=== PATIENT | male | born 1990 | race Caucasian/White ===

== ENCOUNTER 2017-08-02 00:17 | Emergency (ER) | payer OTHER, SELFPAY ==
[2017-08-02] MEDS ORDERED: NA CHLORIDE 0.9% 1,000 ML ONE (01:05)
[2017-08-02 01:31] LABS: Protime INR 0.96
[2017-08-02 01:42] LABS: BUN Blood Urea Nitrogen 15 mg/dL (6-20); Bicarbonate 28 mEq/L (21-31); Glucose Level 114 mg/dL (65-120); Potassium 3.8 mEq/L (3.6-5.0); Sodium Level 139 mEq/L (135-145)
[2017-08-02 01:51] LABS: Hematocrit 45.4 % (39.6-49.0); RBC Red Blood Cell Count 5.37 M/uL (4.33-5.43)
[2017-08-02 01:52] LABS: Absolute Lymphocytes (CBC) 2.7 K/uL (0.7-4.9); Absolute Monocytes 0.7 K/uL (0.1-1.3); Absolute Neutrophil 6.3 K/uL (1.8-8.0); Basophils % 0.8 % (0-1.3); Eosinophils % 2.1 % (0-4.4); MCH 28.1 pg (27.0-35.0); MCV 84.7 fL (80-100); MPV 9.5 fL (7.6-11.3); Monocytes % 7.3 % (3.3-12.3)
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
== END 2017-08-02 03:42 | disposition home or self-care (01) ==
LOC: ER 00:17
DX: S06.0X0A Concussion without loss of consciousness, initial encounter (principal); S00.90XA Unspecified superficial injury of unspecified part of head, initial encounter; Y04.8XXA Assault by other bodily force, initial encounter; Y93.9 Activity, unspecified; Y92.009 Unspecified place in unspecified non-institutional (private) residence as the place of occurrence of the external cause; I10 Essential (primary) hypertension; Z88.0 Allergy status to penicillin; Z72.0 Tobacco use
CPT/HCPCS: 36415; 70450; 70486; 76377; 80048; 85025; 85610; 85730; 99284; J7030

== ENCOUNTER 2021-07-21 08:43 | Emergency (ER) | payer OTHER, SELFPAY ==
--- OUTSIDE RECORDS SUMMARY | 2021-07-21 08:46 | XMS REPORT | Continuity of Care Document ---
:1990 Author Organization [facility] t Address [address] [place] [address] [address] [place] [address] Care Team Providers Name Role Phone Julián Manzo MD Attending Clinician Amrita WILKES Attending Clinician Unavailable Problems Condition Condition Condition Status Onset Resolution Last Treating Co mments Source Name Details Category Date Date Treatment Clinician Date Bipolar 1 Bipolar 1 Disease Active Uni vers disorder, disorder, 4-05 ity of depressed depressed 00:00: [address] Allergies, Adverse Reactions, Alerts Allergy Allergy Status Severity Reaction(s) Onset Inactive Treating Comm ents Source Name Type Date Date Clinician NO KNOWN Drug Active Univers ALLERGIE Class ity of S [facility] Social History Social Habit Start Date Stop Date Quantity Comments Source History of tobacco Cigarette Smoker [place] of use [facility] Sex Assigned At Universit y of [facility] Cigarettes smoked 2019-01-20 2019-01-20 Univers ity of current (pack per 00:00:00 00:00:00 ) - Reported Branch Alcohol intake 2019-01-20 2019-01-20 [facility] 00:00:00 00:00:00 [facility] Alcohol Comment 2015-06-04 2015-06-04 [facility] Universit y of 00:00:00 00:00:00 [facility] Smoking Status Start Date Stop Date Source Current every day smoker 2019-01-20 00:00:00 Uni versity of [facility] Medications Ordered Filled Start Stop Current Ordering Indication Dosage Frequency Signature Comments Components Source Medication Medication Date Date Medication? Clinician (SIG) Name Name ALPRAZolam Yes [id number] .5mg Take 1 U nivers 0.5 mg 3-25 tablet by ity of tablet 00:00: mouth 2 [place] 00 (two) [facility] times [place] daily. QUEtiapine Yes [id number] 25mg Take 1 U nivers 25 mg 3-25 tablet by ity of tablet 00:00: mouth 2 [place] 00 (two) [facility] times [facility] daily. azithromyci 2018-03 Yes [id number] 500mg Take 1 Univers n 500 mg 2-02 tablet by ity of tablet 00:00: mouth [place] 00 daily. [facility] Branch acyclovir 2018-03 Yes [id number] 200mg Take 1 Un suzanne 200 mg 2-02 capsule by ity of capsule 00:00: mouth 4 00 (four) Medical times [facility] daily. azithromyci 2018-03 Yes [id number] 500mg Take 1 Univers n 500 mg 1-22 tablet by ity of tablet 00:00: mouth 00 daily. [facility] ALPRAZolam 2018-03 2020- No [id number] .5mg Take 1 Univers 0.5 mg 0-24 03-25 tablet by ity of tablet 00:00: 00:00 mouth 2 [place] 00 :00 (two) [facility] [place] daily. QUEtiapine 2018-03 2020- No [id number] 25mg Take 1 Univers 25 mg 0-24 03-25 tablet by ity of tablet 00:00: 00:00 mouth 2 [place] 00 :00 (two) [facility] [place] daily. Procedures This patient has no known procedures. Encounters Start End Encounter Admission Attending Care Care Encounter Source Date/Time Date/Time Type Type Clinicians Facility Department ID 2019-11-07 2019-11-07 Outpatient [facility] [id number] Univers 13:40:00 13:40:00 [id number] ity of [facility] 2019-11-07 2019-11-07 Outpatient [facility] [id number] Univers 13:40:00 13:40:00 ity [facility] 2019-05-23 2019-05-23 Refill Jovany [facility] [id number] Univers 00:00:00 00:00:[address] [facility] [id number] it y of Julián Desai [id number] [place]al[place] [id number] [place] [address] [address] Results Test Description Test Time Test Comments Results Result Comments Source Chemistry 2017-07-28 01:31:00 Test Item Value Reference Range Interpretation Comme nts Chemistry (test code = 0.8 ng/mL 0-6.6 N CKMBM-T) Chemistry (test code = Less than 0.010 < 0.028 * TROPI-T) ng/mL Reference Range 0.00 - 0. 028 ng/mL Negative 0.029 - 0.29 ng/mL Indeterminate Greater or Equ al to 0.3 ng/mL Strong ly suggests [place] [id number] 01:30:00 Test Item Value Reference Range Interpretation Comments Chemistry (test code 141 mmol/L 136-145 N = NA-T) Chemistry (test code 3.5 mmol/L 3.5-5.1 N = K-T) Chemistry (test code 109 mmol/L 98-107 H = CL) Chemistry (test code 21 mmol/L 22-29 L = CO2) Chemistry (test code 15 mmol/L 10-20 N = ANGP) Chemistry (test code 17 mg/dL 8.9-20.6 N = BUN) Chemistry (test code 1.06 mg/dL 0.7-1.3 N = CREATT) Chemistry (test code 84 Referen ce Range for = EGFRMDRD) Estimated GFR: Great er than 90 mL/min/1.73 m2NOTE:The MDRD equation has no t been validated for u se with theelderly (ove r 70 years of age), women, patientswith se rious comorbid condit ion or persons with ex tremes ofbody size, mu scle mass, or nutrit ional status. Chemistry (test code 107 mg/dL 70-105 H = GLU-T) Chemistry (test code 9.5 mg/dL 7.8-10.44 N = CA) Chemistry (test code 0.3 mg/dL 0.2-1.2 N = TBILI) Chemistry (test code 6.9 g/dL 6.0-8.3 N = TP) Chemistry (test code 4.3 g/dL 3.5-5.0 N = ALB) Chemistry (test code 2.6 g/dL 2.4-3.5 N = GLOB) Chemistry (test code 1.7 g/dL 1.2-2.2 N = AG) Chemistry (test code 48 U/L 40-150 N = ALP) Chemistry (test code 19 U/L 5-34 N = AST) Chemistry (test code 34 U/L 8-55 N = ALT) [id number] 01:30:00 Test Item Value Reference Range Interpretation Comments Chemistry (test code = LIP) 20 U/L 8-78 N [id number] 01:17:00 Test Item Value Reference Range Interpretation Comments Hematology (test code = WBCT) 11.7 thou/uL 4.8-10.8 H Hematology (test code = RBCT) 5.51 mill/uL 4.70-6.10 N Hematology (test code = HGBT) 16.2 g/dL 14.0-18.0 N Hematology (test code = HCTT) 44.8 % 42.0-52.0 N Hematology (test code = MCV) 81.4 fl 80.0-94.0 N Hematology (test code = MCH) 29.4 pg 27.0-31.0 N Hematology (test code = MCHC) 36.1 g/dL 32.0-36.0 H Hematology (test code = RDW) 11.9 % 11.5-14.5 N Hematology (test code = PLTT) 239 thou/uL 130-400 N Hematology (test code = MPV) 7.4 fL 7.4-10.4 N Hematology (test code = %NEUT) 62.9 % 42.0-75.0 N Hematology (test code = %LYMPH) 27.8 % 21.0-51.0 N Hematology (test code = %MONO) 6.5 % 0.0-10.0 N Hematology (test code = %EOS) 1.6 % 0.0-10.0 N Hematology (test code = %BASO) 1.2 % 0.0-1.0 H Hematology (test code = NEUT#) 7.4 thou/uL 1.40-6.50 H Hematology (test code = LYMPH#) 3.3 thou/uL 1.20-3.40 N Hematology (test code = MONO#) 0.8 thou/uL 0.11-0.59 H Hematology (test code = EOS#) 0.2 thou/uL 0.0-0.7 N Hematology (test code = BASO#) 0.1 thou/uL 0.0-0.2 N
[2021-07-21] MEDS ORDERED: IBUPROFEN 400 MG TAB ONE (09:09)
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
--- NOTE | 2021-07-21 11:01 | EDPHYS ---
Physician Documentation [facility] Name: Nito Caba Age: 31 yrs Sex: Male : 1990 Arrival Date: 07/21/2021 Time: 08:47 Bed 13 Private MD: ED Physician Rey Clayton HPI: 07/21 08:54 This 31 yrs old Male presents to ER via Ambulatory with complaints of Toe Injury, Foot m Pain. 08:54 The patient presents with an injury, pain. Onset: The symptoms/episode began/occurred jm acutely, just prior to arrival. Modifying factors: The symptoms are alleviated by nothing, the symptoms are aggravated by nothing. Associated signs and symptoms: Pertinent positives: swelling. 08:54 Is a 31-year-old male with history of hypertension the presents emerged part with [facility] complaints of right foot pain. This occurred after a barbecue pit fell on his right foot. This occurred this past Wednesday. Patient states he had pain and swelling since. Patient has some concerns he may have broken his foot. Denies other injury. Historical: - Allergies: 08:51 PENICILLINS; jd3 - Home Meds: 08:51 None [Active]; jd3 - PMHx: 08:51 Hypertension; jd3 - PSHx: 08:51 dental; jd3 - Immunization history:: Adult Immunizations up to date, Client reports having NOT received the Covid vaccine. Flu vaccine is up to date. - Social history:: Smoking status: Patient reports the use of cigarette tobacco products, smokes one-half pack cigarettes per day. ROS: 08:54 Constitutional: Negative for fever, chills, and weight loss, Cardiovascular: Negative jmm for chest pain, palpitations, and edema, Respiratory: Negative for shortness of breath, cough, wheezing, and pleuritic chest pain. 08:54 MS/extremity: Positive for pain. 08:54 All other systems are negative. Exam: 08:54 Constitutional: This is a well developed, well nourished patient who is awake, alert, jmm and in no acute distress. Head/Face: atraumatic. Eyes: EOMI, no conjunctival erythema appreciated ENT: Moist Mucus Membranes Neck: Trachea midline, Supple Chest/axilla: Normal chest wall appearance and motion. Cardiovascular: Regular rate and rhythm. No edema appreciated Respiratory: Normal respirations, no respiratory distress appreciated Abdomen/GI: Non distended, soft Back: Normal ROM Skin: General appearance color normal 08:54 Musculoskeletal/extremity: The dorsal surface of the right foot is tender to palpation, there is mild swelling appreciated, full dorsalis pedis pulse, compartments are soft, neurovascular intact. 08:54 Skin: Appearance: Color: normal in color. 08:54 Neuro: Orientation: is normal, Mentation: is normal, Memory: is normal. 08:54 Psych: Behavior/mood is pleasant, cooperative. Vital Signs: 08:51 BP 177 / 99; Pulse 84; Resp 17 S; Temp 97.0(TE); Pulse Ox 99% on R/A; Weight 117.93 kg jd3 (R); Height 5 ft. 11 in. (180.34 cm) (R); Pain 6/10; 08:51 Body Mass Index 36.26 (117.93 kg, 180.34 cm) jd3 MDM: 08:54 Patient medically screened. [facility] 11:00 Data reviewed: vital signs, nurses notes. Counseling: I had a detailed discussion with virgie the patient and/or guardian regarding: the historical points, exam findings, and any diagnostic results supporting the discharge/admit diagnosis, radiology results, the need for outpatient follow up, to return to the emergency department if symptoms worsen or persist or if there are any questions or concerns that arise at home. 07/21 08:54 Order name: Foot Right 3 View XRAY; Complete Time: 10:59 [facility] Administered Medications: 09:05 Drug: Ibuprofen 800 mg Route: PO; ap3 Disposition: 18:19 Co-signature as Attending Physician, Rey CABEZAS was immediately available on-site ms3 in the Emergency Department for consultation in the care of the patient.. Disposition Summary: 07/21/21 11:00 Discharge Ordered Location: Home [facility] Condition: Stable [facility] Diagnosis - Contusion of the Right Foot [facility] Followup: [facility] - With: Private Physician - When: 2 - 3 days - Reason: Recheck today's complaints, Continuance of care, Re-evaluation by your physician Discharge Instructions: - Discharge Summary Sheet [facility] - Foot Contusion [facility] Forms: - Medication Reconciliation Form [facility] - Thank You Letter alanis - Antibiotic Education [facility] - Prescription Opioid Use [facility] - Work release form iw Prescriptions: - Diclofenac Sodium 75 mg Oral Tablet Sustained Release - take 1 tablet by ORAL route 2 times per day; 30 tablet; Refills: 0, Product virgie Selection Permitted Signatures: Dispatcher [employer] Camilo Ferro PA PA jmm Davies, Jonathon RN RN jd3 Gin Milan RN RN ap3 Rey Clayton DO DO ms3
--- NOTE | 2021-07-21 11:01 | ER ---
Nurse's Notes [facility] Name: Nito Caba Age: 31 yrs Sex: Male : 1990 Arrival Date: 07/21/2021 Time: 08:47 Bed 13 Private MD: Diagnosis: Contusion of the Right Foot Presentation: 07/21 08:49 Chief complaint: Patient states: "I dropped a BBQ pit on my right foot. it feels jd3 bruised, but my job wants me to make sure it is ok. I am just wanting to make sure it isn't break.". Coronavirus screen: At this time, the client does not indicate any symptoms associated with coronavirus-19. Ebola Screen: No symptoms or risks identified at this time. Initial Sepsis Screen: Does the patient meet any 2 criteria? No. Patient's initial sepsis screen is negative. Does the patient have a suspected source of infection? No. Patient's initial sepsis screen is negative. Risk Assessment: Do you want to hurt yourself or someone else? Patient reports no desire to harm self or others. Onset of symptoms was July 18, 2021. 08:49 Method Of Arrival: Ambulatory jd3 08:49 Acuity: ANGELIA 4 jd3 Historical: - Allergies: 08:51 PENICILLINS; jd3 - Home Meds: 08:51 None [Active]; jd3 - PMHx: 08:51 Hypertension; jd3 - PSHx: 08:51 dental; jd3 - Immunization history:: Adult Immunizations up to date, Client reports having NOT received the Covid vaccine. Flu vaccine is up to date. - Social history:: Smoking status: Patient reports the use of cigarette tobacco products, smokes one-half pack cigarettes per day. Screenin:54 Abuse screen: Denies threats or abuse. Nutritional screening: No deficits noted. ap3 Tuberculosis screening: No symptoms or risk factors identified. 08:59 Fall Risk None identified. ap3 Assessment: 08:58 General: Appears in no apparent distress. Behavior is calm, cooperative. Pain: ap3 Complains of pain in right foot. Neuro: Level of Consciousness is awake, alert, obeys commands, Oriented to person, place, time, situation, Gait is steady, Speech is normal. Cardiovascular: Patient's skin is warm and dry. Respiratory: Airway is patent Respiratory effort is even, unlabored, Respiratory pattern is regular, symmetrical. Musculoskeletal: Reports pain in right foot since 07/18/21. 11:07 Reassessment: Patient is alert, oriented x 3, equal unlabored respirations, skin jh6 warm/dry/pink. no change in status. pt able to walk without issue or limp. Vital Signs: 08:51 BP 177 / 99; Pulse 84; Resp 17 S; Temp 97.0(TE); Pulse Ox 99% on R/A; Weight 117.93 kg jd3 (R); Height 5 ft. 11 in. (180.34 cm) (R); Pain 610; 08:51 Body Mass Index 36.26 (117.93 kg, 180.34 cm) jd3 ED Course: 08:47 Patient arrived in ED. am2 08:48 Camilo Braden PA is PHCP. alanis 08:48 Rey Clayton DO is Attending Physician. [facility] 08:50 Triage completed. jd3 08:53 Arm band placed on. jd3 08:54 Gin Milan, RN is Primary Nurse. ap3 08:54 Patient has correct armband on for positive identification. Call light in reach. Side ap3 rails up X 1. Pulse ox on. NIBP on. Door closed. Noise minimized. 10:49 Foot Right 3 View XRAY In Process Unspecified. EDMS 11:07 No provider procedures requiring assistance completed. jh6 Administered Medications: 09:05 Drug: Ibuprofen 800 mg Route: PO; ap3 Medication: 08:59 VIS not applicable for this client. ap3 Outcome: 11:00 Discharge ordered by MD. garvin 11:08 Discharged to home ambulatory. jh6 11:08 Condition: good 11:08 Discharge instructions given to patient, Instructed on discharge instructions, Demonstrated understanding of instructions. 11:13 Patient left the ED. 6 Signatures: Dispatcher [employer] EDMS Camilo Braden PA PA jmm Moreno, Amanda am2 Td Navarrete RN RN j Gin Milan RN RN ap3 Marylin Augustin RN RN 6
[2021-07-21 11:17] VITALS: BP 177/99; TEMP 97; O2SAT 99
== END 2021-07-21 11:13 | disposition home or self-care (01) ==
LOC: ER 08:43
DX: S90.31XA Contusion of right foot, initial encounter (principal); W22.8XXA Striking against or struck by other objects, initial encounter; I10 Essential (primary) hypertension; F17.210 Nicotine dependence, cigarettes, uncomplicated; Z88.0 Allergy status to penicillin
CPT/HCPCS: 99283

== ENCOUNTER 2021-07-22 16:30 | Emergency (ER) | payer OTHER ==
--- OUTSIDE RECORDS SUMMARY | 2021-07-22 16:32 | XMS REPORT | Continuity of Care Document ---
:1990 Author Organization [facility] t Address [address] [place] [address] [address]. [address] [place] [address] Care Team Providers Name Role Phone Julián Manzo MD Attending Clinician Amrita WILKES Attending Clinician Unavailable Problems Condition Condition Condition Status Onset Resolution Last Treating Co mments Source Name Details Category Date Date Treatment Clinician Date Bipolar 1 Bipolar 1 Disease Active Uni vers disorder, disorder, -05 [place] depressed [place] [address] Allergies, Adverse Reactions, Alerts Allergy Allergy Status Severity Reaction(s) Onset Inactive Treating Comm ents Source Name Type Date Date Clinician NO KNOWN Drug Active Univers ALLERGIE Class ity of S [facility] Social History Social Habit Start Date Stop Date Quantity Comments Source History of tobacco Cigarette Smoker [facility] use [facility] Cigarettes smoked 2019-01-20 2019-01-20 Univers ity of current (pack per 00:00:00 00:00:00 ) - Reported Branch Alcohol intake 2019-01-20 2019-01-20 University 00:00:00 00:00:00 [facility] Alcohol Comment 2015-06-04 2015-06-04 [facility] Universit y of 00:00:00 00:00:00 [facility] Smoking Status Start Date Stop Date Source Current every day smoker 2019-01-20 00:00:00 Uni versity of [facility] Medications Ordered Filled Start Stop Current Ordering Indication Dosage Frequency Signature Comments Components Source Medication Medication Date Date Medication? Clinician (SIG) Name Name ALPRAZolam 2020-0 Yes [id number] .5mg Take 1 U nivers 0.5 mg 3-25 tablet by ity of tablet 00:00: mouth [address] [place] [id number] (two) Medical times Branch daily. QUEtiapine Yes [id number] 25mg Take 1 U nivers 25 mg 3-25 tablet by ity of tablet 00:00: mouth 2 [place] 00 (two) Medical times Branch daily. azithromyci 2018-03 Yes [id number] 500mg Take 1 Univers n 500 mg 2-02 tablet by ity of tablet 00:00: mouth [place] 00 daily. Medical Branch acyclovir 2018-03 Yes [id number] 200mg Take 1 Un suzanne 200 mg 2-02 capsule by ity of capsule 00:00: mouth 4 [place] 00 (four) Medical times Branch daily. azithromyci 2018-03 Yes [id number] 500mg Take 1 Univers n 500 mg 1-22 tablet by ity of tablet 00:00: mouth [place] 00 daily. [facility] ALPRAZolam 2018-03 2020- No [id number] .5mg Take 1 Univers 0.5 mg 0-24 03-25 tablet by ity of tablet 00:00: 00:00 mouth 2 [place] 00 :00 (two) Medical times [place] daily. QUEtiapine 2018-03 2020- No [id number] 25mg Take 1 Univers 25 mg 0-24 03-25 tablet by ity of tablet 00:00: 00:00 mouth 2 [place] 00 :00 (two) Medical times [place] daily. Procedures This patient has no known procedures. Encounters Start End Encounter Admission Attending Care Care Encounter Source Date/Time Date/Time Type Type Clinicians Facility Department ID 2019-11-07 2019-11-07 Outpatient R [facility] [id number] Univers 13:40:00 13:40:00 [id number] ity [facility] 2019-11-07 2019-11-07 Outpatient R [facility] [id number] Univers 13:40:00 13:40:00 ity [facility] 2019-05-23 2019-05-23 [facility] [id number] Univers 00:00:00 00:00:00 [facility] [id number] it y of Julián Desai [id number] [place] as Reynaldo [id number] Wi dical [facility] [address] One Results Test Description [...] al to 0.3 ng/mL Strong ly suggests [place] [id number] 01:30:00 Test Item Value Reference Range Interpretation [...] code 34 U/L 8-55 N = ALT) [id number] 01:30:00 Test Item Value Reference Range Interpretation Comments Chemistry (test code = LIP) 20 U/L 8-78 N [id number] 01:17:00 Test Item Value Reference Range Interpretation [...]
[2021-07-22] MEDS ORDERED: ONDANSETRON 4 MG/2 ML VIAL ONE (17:04)
[2021-07-22] MEDS ORDERED: ACETAMINOPHEN 500 MG TAB ONE (17:04)
[2021-07-22] MEDS ORDERED: NA CHLORIDE 0.9% 1,000 ML ONE (17:05)
[2021-07-22] MEDS ORDERED: FAMOTIDINE 20 MG/2 ML VIAL IV ONE (17:06)
[2021-07-22 17:17] LABS: Urine Blood 2+ (Negative); Urine Glucose Negative (Negative); Urine Protein Trace (Negative); Urine Specific Gravity 1.025 (1.005-1.030)
[2021-07-22 17:21] LABS: Absolute Lymphocytes (CBC) 0.6 K/uL (0.7-4.9); Hematocrit 43.7 % (39.6-49.0); MPV 8.6 fL (7.6-11.3); RBC Red Blood Cell Count 5.13 M/uL (4.33-5.43)
[2021-07-22 17:41] LABS: Albumin 3.8 g/dL (3.4-5.0); Bilirubin Total 0.4 mg/dL (0.2-1.0); Potassium 3.6 mmol/L (3.5-5.1); Protein, Total 7.2 g/dL (6.4-8.2)
[2021-07-22 17:51] LABS: Urine Bacteria <20 /HPF (NONE SEEN)
--- NOTE | 2021-07-22 19:02 | ER ---
Nurse's Notes [facility] Name: Nito Caba Age: 31 yrs Sex: Male : 1990 Arrival Date: 07/22/2021 Time: 16:31 Bed 23 Private MD: Diagnosis: Other specified noninfective gastroenteritis and colitis Presentation: 07/22 16:53 Chief complaint: Patient states: Fever that began this morning. Pt reports vomiting and aa5 diarrhea that began during the night. Pt denies abd pain. Pt c/o body aches. Denies cough. 16:53 Coronavirus screen: fever. Ebola Screen: Patient denies travel to an Ebola-affected [facility] area in the 21 days before illness onset. Initial Sepsis Screen: Does the patient meet any 2 criteria? HR > 90 bpm. Does the patient have a suspected source of infection? No. Patient's initial sepsis screen is negative. Risk Assessment: Do you want to hurt yourself or someone else? Patient reports no desire to harm self or others. Onset of symptoms was June 2021. 16:53 Method Of Arrival: Ambulatory aa5 16:53 Acuity: ANGELIA 3 aa5 Triage Assessment: 18:31 General: Appears in no apparent distress. Behavior is calm, cooperative. wells Historical: - Allergies: 16:53 PENICILLINS; aa5 - PMHx: 16:53 Hypertension; aa5 - PSHx: 16:53 dental; aa5 - Immunization history:: Adult Immunizations unknown. - Social history:: Smoking status: Patient reports the use of cigarette tobacco products, smokes one-half pack cigarettes per day. Screenin:31 Abuse screen: Denies threats or abuse. Denies injuries from another. Nutritional wells screening: No deficits noted. Tuberculosis screening: No symptoms or risk factors identified. Fall Risk None identified. Assessment: 18:28 Pain: Complains of pain in generlized pain. GI: Bowel sounds present X 4 quads. Reports wells nausea, Pain is 6 out of 10 on a pain scale. vomiting. Vital Signs: 16:53 BP 160 / 84; Pulse 105; Resp 18 S; Temp 102.5(O); Pulse Ox 100% on R/A; aa5 18:32 BP 129 / 66; Pulse 83; Resp 18; Temp 99.5(O); wells ED Course: 16:31 Patient arrived in ED. rg4 16:35 Marylin Orantes FNP is [facility]. jh7 16:35 Amos Liu MD is Attending Physician. jh7 16:54 Arm band placed on. aa5 16:57 Triage completed. aa5 17:07 Flu Sent. mb7 17:07 CBC with Diff Sent. mb7 17:07 CMP Sent. mb7 17:07 Lipase Sent. mb7 17:07 Urine Microscopic Only Sent. mb7 17:07 Inserted saline lock: 20 gauge in left upper arm, using aseptic technique. Blood mb7 collected. 17:21 Flu Sent. mb7 18:28 Fern Zapien, RN is Primary Nurse. wells 18:31 Patient has correct armband on for positive identification. Bed in low position. wells 18:31 No provider procedures requiring assistance completed. wells 19:27 IV discontinued, intact, bleeding controlled, No redness/swelling at site. Pressure ag7 dressing applied. Administered Medications: 17:08 Drug: NS 0.9% 1000 ml Route: IV; Rate: 1 bolus; Site: left antecubital; aa5 18:26 Follow up: IV Status: Completed infusion; IV Intake: 1000ml aa5 17:08 Drug: Pepcid (famotidine) 20 mg Route: IVP; Site: left antecubital; aa5 17:08 CANCELLED (Physician Discretion): Tylenol 650 mg PO once aa5 17:08 Drug: Tylenol 1000 mg Route: PO; aa5 18:32 Follow up: Response: No adverse reaction wells 17:09 Drug: Zofran (Ondansetron) 4 mg Route: IVP; Site: left antecubital; aa5 Medication: 18:31 VIS not applicable for this client. wells Intake: 18:26 IV: 1000ml; Total: 1000ml. aa5 Outcome: 19:01 Discharge ordered by . 7 19:27 Discharged to home ambulatory. ag7 19:27 Condition: stable 19:27 Discharge instructions given to patient, Instructed on discharge instructions, follow up and referral plans. Demonstrated understanding of instructions, follow-up care, medications, Prescriptions given X 2. 19:27 Patient left the ED. 7 Signatures: Renae Adhikari RN RN aa5 Olivia Hdez rg4 Judi Jose mbFern Murcia RN RN wells Aleah Kerns RN RN ag7 Marylin Oratnes, JAWBONE BREAKER JAWBONE BREAKER jh7 Corrections: (The following items were deleted from the chart) 18:36 18:32 Temp 99.5F Oral; wells priscilla
--- NOTE | 2021-07-22 19:02 | EDPHYS ---
Physician Documentation [facility] Name: Nito Caba Age: 31 yrs Sex: Male : 1990 Arrival Date: 07/22/2021 Time: 16:31 Bed 23 Private MD: ED Physician Amos Liu HPI: 07/22 17:00 This 31 yrs old Male presents to ER via Ambulatory with complaints of Fever. jh7 17:00 The patient reports fever, that was measured at 102 degrees Fahrenheit. Onset: The jh7 symptoms/episode began/occurred last night. Patient reports fever, 4-5 episodes of vomiting, body aches, and diarrhea since last night. He denies abdominal pain, cough, chest pain, and shortness of breath. declines covid testing at this time.. Historical: - Allergies: 16:53 PENICILLINS; aa5 - PMHx: 16:53 Hypertension; aa5 - PSHx: 16:53 dental; aa5 - Immunization history:: Adult Immunizations unknown. - Social history:: Smoking status: Patient reports the use of cigarette tobacco products, smokes one-half pack cigarettes per day. ROS: 17:00 ENT: Negative for injury, pain, and discharge, Neck: Negative for injury, pain, and jh7 swelling, Cardiovascular: Negative for chest pain, palpitations, and edema, Respiratory: Negative for shortness of breath, cough, wheezing, and pleuritic chest pain, Back: Negative for injury and pain, Skin: Negative for injury, rash, and discoloration, Neuro: Negative for headache, weakness, numbness, tingling, and seizure. 17:00 Constitutional: Positive for body aches, chills, fatigue, fever. 17:00 Abdomen/GI: Positive for nausea, vomiting, and diarrhea, Negative for abdominal pain, abdominal cramps, black/tarry stool, rectal pain. 17:00 All other systems are negative. Exam: 17:00 ENT: Nares patent. No nasal discharge, no septal abnormalities noted. Tympanic jh7 membranes are normal and external auditory canals are clear. Oropharynx with no redness, swelling, or masses, exudates, or evidence of obstruction, uvula midline. Mucous membranes moist. Cardiovascular: Regular rate and rhythm with a normal S1 and S2. No gallops, murmurs, or rubs. Normal PMI, no JVD. No pulse deficits. Respiratory: Lungs have equal breath sounds bilaterally, clear to auscultation and percussion. No rales, rhonchi or wheezes noted. No increased work of breathing, no retractions or nasal flaring. Back: No spinal tenderness. No costovertebral tenderness. Full range of motion. Skin: Warm, dry with normal turgor. Normal color with no rashes, no lesions, and no evidence of cellulitis. Neuro: Awake and alert, GCS 15, oriented to person, place, time, and situation. Normal gait. 17:00 Constitutional: The patient appears alert, awake, uncomfortable. 17:00 Abdomen/GI: Inspection: abdomen appears normal, Bowel sounds: normal, Palpation: abdomen is soft and non-tender, in all quadrants. 17:00 Back: pain, is absent, ROM is normal, CVA tenderness, is absent. jh7 17:00 : CVA tenderness, is absent. Vital Signs: 16:53 BP 160 / 84; Pulse 105; Resp 18 S; Temp 102.5(O); Pulse Ox 100% on R/A; aa5 18:32 BP 129 / 66; Pulse 83; Resp 18; Temp 99.5(O); wells MDM: 17:00 Differential diagnosis: viral Infection. Data reviewed: vital signs, nurses notes, lab jh7 test result(s). Data interpreted: Pulse oximetry: is 100 %. Interpretation: normal. Counseling: I had a detailed discussion with the patient and/or guardian regarding: the historical points, exam findings, and any diagnostic results supporting the discharge/admit diagnosis, to return to the emergency department if symptoms worsen or persist or if there are any questions or concerns that arise at home. Response to treatment: the patient's symptoms have markedly improved after treatment. ED course: The patient remained stable throughout the ER visit. His temperature decreased with the Tylenol, and he felt much better after the medications were administered. Discussed microscopic blood in the urine with patient. He has no CVA tenderness or abdominal pain. He has not noticed any blood in his urine. Advised him to follow-up with his PCP, take medication as prescribed, and increase p.o. fluid intake. Advised him that if he develops any new concerning symptoms, to return to the ER for further eval.. 18:23 Patient medically screened. [facility] 07/22 17:02 Order name: CBC with Diff; Complete Time: 18:22 [facility] 07/22 17:02 Order name: CMP; Complete Time: 18: [facility] 07/22 17:02 Order name: Lipase; Complete Time: 18:22 [facility] 07/22 17:02 Order name: Urine Microscopic Only; Complete Time: 18:22 [facility] 07/22 17:02 Order name: Flu; Complete Time: 18: [facility] 07/22 17:18 Order name: Urine Dipstick-Ancillary; Complete Time: 18:22 [facility] 07/22 17:02 Order name: IV Saline Lock; Complete Time: 17:07 [facility] 07/22 17:02 Order name: Labs collected and sent; Complete Time: 17:07 [facility] Administered Medications: 17:08 Drug: NS 0.9% 1000 ml Route: IV; Rate: 1 bolus; Site: left antecubital; aa5 18:26 Follow up: IV Status: Completed infusion; IV Intake: 1000ml aa5 17:08 Drug: Pepcid (famotidine) 20 mg Route: IVP; Site: left antecubital; aa5 17:08 CANCELLED (Physician Discretion): Tylenol 650 mg PO once aa5 17:08 Drug: Tylenol 1000 mg Route: PO; aa5 18:32 Follow up: Response: No adverse reaction wells 17:09 Drug: Zofran (Ondansetron) 4 mg Route: IVP; Site: left antecubital; aa5 Disposition: 07/23 08:41 Co-signature as Attending Physician, Amos Liu MD. rn Disposition Summary: 07/22/21 19:01 Discharge Ordered Location: Home [facility] Problem: new [facility] Symptoms: have improved [facility] Condition: Stable [facility] Diagnosis - Other specified noninfective gastroenteritis and colitis [facility] Followup: [facility] - With: Private Physician - When: 2 - 3 days - Reason: Recheck today's complaints Discharge Instructions: - Discharge Summary Sheet [facility] - Diarrhea, Adult [facility] - Viral Gastroenteritis, Adult [facility] Forms: - Work release form ag7 - Medication Reconciliation Form [facility] - Thank You Letter [facility] Prescriptions: - Zofran 4 mg Oral Tablet - take 1 tablet by ORAL route every 12 hours As needed; 20 tablet; Refills: 0, jh7 Product Selection Permitted - Levsin 0.125 mg Oral Tablet - take 1 tablet by ORAL route every 8 hours; 30 tablet; Refills: 0, Product [facility] Selection Permitted Signatures: Dispatcher [employer] EDAmos Gutierrez MD MD rn Calderon, Audri, RN RN aa5 Marylin Orantes FNP LEGAL EDITOR [facility] GenevieveStagerFern RN Corrections: (The following items were deleted from the chart) 07/22 17:08 17:02 Tylenol 650 mg PO once ordered. 7 aa5 18:28 17:00 Patient reports fever, 4-5 episodes of vomiting, body aches, and diarrhea since 7 last night. He denies abdominal pain, cough, chest pain, and shortness of breath.. [facility]
[2021-07-22 19:36] VITALS: O2SAT 100
[2021-07-22 19:37] VITALS: BP 129/66; TEMP 99.5
== END 2021-07-22 19:27 | disposition home or self-care (01) ==
LOC: ER 16:30
DX: K52.89 Other specified noninfective gastroenteritis and colitis (principal); I10 Essential (primary) hypertension; F17.210 Nicotine dependence, cigarettes, uncomplicated; Z88.0 Allergy status to penicillin
CPT/HCPCS: 96361; 85025; 36415; 83690; 80053; 87804 ×2; 96375; 96374; 99284; J7030; J2405; J3490; 81003; 81015

== ENCOUNTER 2021-10-10 10:31 | Emergency (ER) | payer OTHER ==
--- OUTSIDE RECORDS SUMMARY | 2021-10-10 10:34 | XMS REPORT | Continuity of Care Document ---
:1990 Author Organization [facility] t Address [address] [place] [address] [address] [place] [address] Care Team Providers Name Role Phone Aneudy Manzo MD Attending Clinician ALDEN WILKES Attending Clinician Unavailable Problems Condition Condition Condition Status Onset Resolution Last Treating Co mments Source Name Details Category Date Date Treatment Clinician Date Bipolar 1 Bipolar 1 Disease Active Uni vers disorder, disorder, 06-03 ity of depressed depressed 00:00: [address] Allergies, Adverse Reactions, Alerts Allergy Allergy Status Severity Reaction(s) Onset Inactive Treating Comm ents Source Name Type Date Date Clinician NO KNOWN Drug Active Univers ALLERGIE Class ity of [facility] Social History Social Habit Start Date Stop Date Quantity Comments Source History of tobacco Cigarette Smoker [facility] use [facility] Sex Assigned At [facility]it y of [facility] Cigarettes smoked 2019-01-20 2019-01-20 Univers ity of current (pack per 00:00:00 00:00:00 ) - Reported Branch Alcohol intake 2019-01-20 2019-01-20 University 00:00:00 00:00:00 [facility] Alcohol Comment 2015-06-04 2015-06-04 occ Universit y of 00:00:00 00:00:00 [facility] Smoking Status Start Date Stop Date Source Current every day smoker 2019-01-20 00:00:00 Uni versity of [facility] Medications Ordered Filled Start Stop Current Ordering Indication Dosage Frequency Signature Comments Components Source Medication Medication Date Date Medication? Clinician (SIG) Name Name ALPRAZolam 2020-0 Yes [id number] .5mg Take 1 U nivers 0.5 mg 3-25 tablet by ity of tablet 00:00: mouth [address] [place] [id number] (two) Medical times Branch daily. QUEtiapine Yes [id number] 25mg Take 1 U nivers 25 mg 3-25 tablet by ity of tablet 00:00: mouth 2 [place] 00 (two) Medical times Branch daily. azithromyci 2018-03 Yes [id number] 500mg Take 1 Univers n 500 mg 2-02 tablet by ity of tablet 00:00: mouth [place] 00 daily. Medical Branch acyclovir 2018-03 Yes [id number] 200mg Take 1 Un suzanne 200 mg 2-02 capsule by ity of capsule 00:00: mouth 4 [place] 00 (four) Medical times Branch daily. azithromyci 2018-03 Yes [id number] 500mg Take 1 Univers n 500 mg 1-22 tablet by ity of tablet 00:00: mouth [place] 00 daily. [facility] Branch ALPRAZolam 2018-03 2020- No [id number] .5mg Take 1 Univers 0.5 mg 0-24 03-25 tablet by ity of tablet 00:00: 00:00 mouth 2 [place] 00 :00 (two) Medical times Branch daily. QUEtiapine 2018-03 2020- No [id number] 25mg Take 1 Univers 25 mg 0-24 03-25 tablet by ity of tablet 00:00: 00:00 mouth 2 [place] 00 :00 (two) Medical times Branch daily. Procedures This patient has no known procedures. Encounters Start End Encounter Admission Attending Care Care Encounter Source Date/Time Date/Time Type Type Clinicians Facility Department ID 2019-11-07 2019-11-07 Outpatient R [facility] [id number] Univers 13:40:00 13:40:00 [id number] ity [facility] 2019-11-07 2019-11-07 Outpatient R [facility] [id number] Univers 13:40:00 13:40:00 ity [facility] 2019-05-23 2019-05-23 Charmaine Manzo [facility] [id number] Univers 00:00:00 00:00:00 [facility] [id number] it y of Julián Desai [id number] [place] [facility] [phone] Ga dical [facility] [address] Branch [address] One Results Test Description Test Time Test Comments Results Result Comments Source Chemistry 2017-07-28 01:31:00 Test Item Value Reference Range Interpretation Comme nts Chemistry (test code = 0.8 ng/mL 0-6.6 N CKMBM-T) Chemistry (test code = Less than 0.010 ng/mL < 0.028 TROPI-T) Reference Range 0.00 - 0.028 ng/mL N egative 0.029 - 0.29 ng/mL In determinate Greater or Equa l to 0.3 ng/mL Strongly sugges ts MD [id number] 01:30:00 Test Item Value Reference Range Interpretation [...] ce Range for = EGFRMDRD) Estimated GFR: Greater than 90 mL/min/ 1.73 m2NOTE:The MDRD equation has no t been validated for u se with theelderly (ove r 70 years of age), women, patients with serious comorbi d condition or pe rsons with extremes o fbody size, muscle ma ss, or nutritional sta tus. Chemistry (test code 107 mg/dL 70-105 H [...] code 34 U/L 8-55 N = ALT) [id number] 01:30:00 Test Item Value Reference Range Interpretation Comments Chemistry (test code = LIP) 20 U/L 8-78 N [id number] 01:17:00 Test Item Value Reference Range Interpretation [...]
[2021-10-10] MEDS ORDERED: NA CHLORIDE 0.9% 1,000 ML ONE (11:00)
[2021-10-10] MEDS ORDERED: DIPHENHYDRAMINE 50 MG/ML VIAL ONE (11:00)
[2021-10-10] MEDS ORDERED: METOCLOPRAMIDE 10 MG/2mL INJ ONE (11:00)
[2021-10-10] MEDS ORDERED: FAMOTIDINE 20 MG/2 ML VIAL IV ONE (11:01)
[2021-10-10 11:14] LABS: Absolute Lymphocytes (CBC) 1.6 K/uL (0.7-4.9); MCV 84.3 fL (80-100); MPV 8.4 fL (7.6-11.3)
[2021-10-10 11:32] LABS: Albumin 4.3 g/dL (3.4-5.0); Bilirubin Total 0.4 mg/dL (0.2-1.0); Potassium 3.9 mmol/L (3.5-5.1); Protein, Total 7.7 g/dL (6.4-8.2)
--- NOTE | 2021-10-10 11:44 | RAD REPORT ---
EXAM DESCRIPTION: US - Abdomen Exam Limited - 10/10/2021 11:28 am CLINICAL HISTORY: EPIGASTRIC PAIN COMPARISON: ABDOMINAL EXAM LIMITED dated 12/30/2012 FINDINGS: The gallbladder demonstrates no gallstones. No pericholecystic fluid or gallbladder wall t hickening. The common bile duct is normal measuring 3 mm. The liver demonstrates no findings of intrahepatic biliary dilatation. IMPRESSION: Unremarkable examination.
--- NOTE | 2021-10-10 12:18 | RAD REPORT ---
EXAM DESCRIPTION: CT - Abdomen Pelvis Wo Contrast - 10/10/2021 11:58 am CLINICAL HISTORY: Abdominal pain. abdominal pain, vomiting COMPARISON: No comparisons TECHNIQUE: CT imaging of the abdomen and pelvis was performed without contrast. Solid organ, bowel a nd vascular assessment is limited due to lack of IV and oral contrast. All CT scans are performed using dose optimization technique as appropriate and may include automated exposure control or mA/KV adjustment according to patient size. FINDINGS: The lower lung matson are clear. The liver, spleen, pancreas, adrenal glands and kidneys are within normal limits for a limited non-co ntrast examination. No bowel obstruction, free air, free fluid or abscess. The appendix is normal. The osseous structures are within normal limits. IMPRESSION: No acute intra-abdominal or pelvic findings. A limited non-contrast examination was performed as detailed.
--- NOTE | 2021-10-10 13:26 | ER ---
Nurse's Notes [facility] Name: Nito Caba Age: 31 yrs Sex: Male : 1990 Arrival Date: 10/10/2021 Time: 10:33 Bed 27 Private MD: Diagnosis: Vomiting Presentation: 10/10 10:40 Chief complaint: Patient states: Burning, cramping epigastric/upper abdominal pain x jl7 1.5 weeks, N/V with blood in vomit. Coronavirus screen: At this time, the client does not indicate any symptoms associated with coronavirus-19. Ebola Screen: No symptoms or risks identified at this time. Initial Sepsis Screen: Does the patient meet any 2 criteria? No. Patient's initial sepsis screen is negative. Does the patient have a suspected source of infection? No. Patient's initial sepsis screen is negative. Risk Assessment: Do you want to hurt yourself or someone else? Patient reports no desire to harm self or others. Onset of symptoms is unknown. 10:40 Method Of Arrival: Ambulatory jl7 10:40 Acuity: ANGELIA 3 jl7 Triage Assessment: 10:41 General: Appears in no apparent distress. uncomfortable, Behavior is calm, cooperative, jl7 appropriate for age. Pain: Complains of pain in epigastric area Pain currently is 7 out of 10 on a pain scale. GI: Reports upper abdominal pain. Historical: - Allergies: 10:41 PENICILLINS; jl7 - Home Meds: 10:41 None [Active]; jl7 - PMHx: 10:41 Hypertension; jl7 - PSHx: 10:41 dental; jl7 - Immunization history:: Client reports receiving the 2nd dose of the Covid vaccine. - Social history:: Smoking status: Patient reports the use of cigarette tobacco products, smokes one pack cigarettes per day. Screenin:45 Abuse screen: Denies threats or abuse. Denies injuries from another. Nutritional bp screening: No deficits noted. Tuberculosis screening: No symptoms or risk factors identified. Fall Risk None identified. Assessment: 10:45 General: SEE TRIAGE NOTE. bp 11:33 Reassessment: US COMPLETED, INITIAL RESULTS UNREMARKABLE. GI: Abdomen is non-distended. bp 12:06 Reassessment: PT RETURNED FROM CT. bp 13:43 Reassessment: PT D/C HOME AMBULATORY. bp Vital Signs: 10:40 BP 126 / 94; Pulse 95; Resp 17; Temp 98.2; Pulse Ox 99% ; Weight 115.67 kg; Height 6 jl7 ft. 0 in. (182.88 cm); Pain 7/10; 10:59 BP 124 / 79; Pulse 76; Resp 16; Pulse Ox 98% ; bp 11:33 BP 127 / 57; Pulse 74; Resp 16; Pulse Ox 97% ; bp 12:06 BP 136 / 65; Pulse 67; Resp 16; Pulse Ox 100% ; bp 13:43 BP 131 / 59; Pulse 71; Resp 16; Pulse Ox 99% ; bp 10:40 Body Mass Index 34.58 (115.67 kg, 182.88 cm) jl7 ED Course: 10:33 Patient arrived in ED. rg4 10:33 Camilo Braden PA is PHCP. jmm 10:33 Jayro Cardenas MD is Attending Physician. jmm 10:41 Triage completed. jl7 10:41 Arm band placed on right wrist. jl7 10:45 Patient has correct armband on for positive identification. Bed in low position. Call bp light in reach. Side rails up X2. 10:49 Randolph Neri, RN is Primary Nurse. bp 10:55 Inserted saline lock: 18 gauge in right antecubital area, using aseptic technique. bp Blood collected. 11:29 US Abdomen Limited In Process Unspecified. EDMS 12:00 Abdomen In Process Unspecified. EDMS 13:25 Srinivas Rankin MD is Referral Physician. jmm 13:44 No provider procedures requiring assistance completed. IV discontinued, intact, bp bleeding controlled, No redness/swelling at site. Pressure dressing applied. Administered Medications: 10:56 Drug: NS 0.9% 1000 ml Route: IV; Rate: 1 bolus; Site: right antecubital; bp 12:59 Follow up: IV Status: Completed infusion; IV Intake: 1000ml bp 10:56 Drug: Pepcid (famotidine) 20 mg Route: IVP; Site: right antecubital; bp 12:59 Follow up: Response: No adverse reaction bp 10:57 Drug: Reglan (metoCLOPramide) 10 mg Route: IVP; Site: right antecubital; bp 12:59 Follow up: Response: No adverse reaction bp 10:57 Drug: diphenhydrAMINE 12.5 mg Route: IVP; Site: right antecubital; bp 12:59 Follow up: Response: No adverse reaction bp Medication: 10:45 VIS not applicable for this client. bp Intake: 12:59 IV: 1000ml; Total: 1000ml. bp Outcome: 13:25 Discharge ordered by MD. garvin 13:44 Discharged to home ambulatory. bp 13:44 Condition: stable 13:44 Discharge instructions given to patient, Instructed on discharge instructions, follow up and referral plans. medication usage, Demonstrated understanding of instructions, follow-up care, medications, Prescriptions given X 3. 13:45 Patient left the ED. bp Signatures: Dispatcher [employer] EDMS Camilo Braden PA PA jmm Garcia, Rubi rg4 Robin Blue RN RN Randolph Hayward RN RN bp Corrections: (The following items were deleted from the chart) 10:41 10:41 Social history: Smoking status: Patient denies any tobacco usage or history of. [place] jl7
--- NOTE | 2021-10-10 13:26 | EDPHYS ---
Physician Documentation [facility] Name: Nito Caba Age: 31 yrs Sex: Male : 1990 Arrival Date: 10/10/2021 Time: 10:33 Bed 27 Private MD: ED Physician Jayro Cardenas HPI: 10/10 10:39 This 31 yrs old Male presents to ER via Ambulatory with complaints of Vomiting. jmm 10:39 The patient presents to the emergency department with nausea, vomiting, abdominal pain. jmm Onset: The symptoms/episode began/occurred acutely, 1.5 week(s) ago. Possible causes: flare up of bowel problem. This is a 31-year-old male with history of hypertension the presents emerged department with complaints of epigastric abdominal pain vomiting beginning approximately a week and a half ago. Patient attributes much of this to stress. Patient has had a previous episode secondary to stress in the past. States he was prescribed medication which help alleviate symptoms but unable to recall the name.. Historical: - Allergies: 10:41 PENICILLINS; jl7 - Home Meds: 10:41 None [Active]; jl7 - PMHx: 10:41 Hypertension; jl7 - PSHx: 10:41 dental; jl7 - Immunization history:: Client reports receiving the 2nd dose of the Covid vaccine. - Social history:: Smoking status: Patient reports the use of cigarette tobacco products, smokes one pack cigarettes per day. ROS: 10:39 Constitutional: Negative for fever, chills, and weight loss, Cardiovascular: Negative jmm for chest pain, palpitations, and edema, Respiratory: Negative for shortness of breath, cough, wheezing, and pleuritic chest pain. 10:39 Abdomen/GI: Positive for abdominal pain, vomiting. 10:39 All other systems are negative. Exam: 10:39 Constitutional: This is a well developed, well nourished patient who is awake, alert, jmm and in no acute distress. Head/Face: atraumatic. Eyes: EOMI, no conjunctival erythema appreciated ENT: Moist Mucus Membranes Neck: Trachea midline, Supple Chest/axilla: Normal chest wall appearance and motion. Cardiovascular: Regular rate and rhythm. No edema appreciated Respiratory: Normal respirations, no respiratory distress appreciated 10:39 Back: Normal ROM Skin: General appearance color normal MS/ Extremity: Moves all extremities, no obvious deformities appreciated, no edema noted to the lower extremities Neuro: Awake and alert Psych: Behavior is normal, Mood is normal, Patient is cooperative and pleasant 10:39 Abdomen/GI: Inspection: abdomen appears normal, Bowel sounds: normal, Palpation: soft, mild abdominal tenderness, in the epigastric area, right upper quadrant and left upper quadrant. Vital Signs: 10:40 BP 126 / 94; Pulse 95; Resp 17; Temp 98.2; Pulse Ox 99% ; Weight 115.67 kg; Height 6 jl7 ft. 0 in. (182.88 cm); Pain 7/10; 10:59 BP 124 / 79; Pulse 76; Resp 16; Pulse Ox 98% ; bp 11:33 BP 127 / 57; Pulse 74; Resp 16; Pulse Ox 97% ; bp 12:06 BP 136 / 65; Pulse 67; Resp 16; Pulse Ox 100% ; bp 13:43 BP 131 / 59; Pulse 71; Resp 16; Pulse Ox 99% ; bp 10:40 Body Mass Index 34.58 (115.67 kg, 182.88 cm) jl7 MDM: 10:39 Patient medically screened. [facility] 13:22 Data reviewed: vital signs, nurses notes. Counseling: I had a detailed discussion with virgie the patient and/or guardian regarding: the historical points, exam findings, and any diagnostic results supporting the discharge/admit diagnosis, the need for outpatient follow up, to return to the emergency department if symptoms worsen or persist or if there are any questions or concerns that arise at home. ED course: Patient states feeling much better. Patient is able to tolerate p.o. in the ED. Labs and imaging studies were unremarkable. Patient advised to follow-up with gastroenterology and otherwise given strict return precautions. Patient understood and agrees plan of care.. 10/10 10:47 Order name: CBC with Diff; Complete Time: 11:25 [facility] 10/10 10:47 Order name: CMP; Complete Time: 11:33 [facility] 10/10 10:47 Order name: Lipase; Complete Time: 11:33 [facility] 10/10 11:04 Order name: US Abdomen Limited; Complete Time: 11:46 [facility] 10/10 11:56 Order name: Abdomen ; Complete Time: 12:22 [facility] 10/10 10:47 Order name: IV Saline Lock; Complete Time: 10:49 [facility] 10/10 10:47 Order name: Labs collected and sent; Complete Time: 10:49 [facility] 10/10 12:34 Order name: PO challenge; Complete Time: 12:59 [facility] Administered Medications: 10:56 Drug: NS 0.9% 1000 ml Route: IV; Rate: 1 bolus; Site: right antecubital; bp 12:59 Follow up: IV Status: Completed infusion; IV Intake: 1000ml bp 10:56 Drug: Pepcid (famotidine) 20 mg Route: IVP; Site: right antecubital; bp 12:59 Follow up: Response: No adverse reaction bp 10:57 Drug: Reglan (metoCLOPramide) 10 mg Route: IVP; Site: right antecubital; bp 12:59 Follow up: Response: No adverse reaction bp 10:57 Drug: diphenhydrAMINE 12.5 mg Route: IVP; Site: right antecubital; bp 12:59 Follow up: Response: No adverse reaction bp Disposition: 14:13 Attestation: The patient's history, exam findings, diagnostics, and a summary of any [facility] interventions or procedures was reviewed in detail with Camilo SORIANO. Disposition Summary: 10/10/21 13:25 Discharge Ordered Location: Home [facility] Condition: Stable [facility] Diagnosis - Vomiting [facility] Followup: [facility] - With: Private Physician - When: As needed - Reason: Recheck today's complaints, Continuance of care, Re-evaluation by your physician Followup: [facility] - With: Srinivas Rankin MD - When: 2 - 3 days - Reason: Recheck today's complaints, Continuance of care, Re-evaluation by your physician Discharge Instructions: - Discharge Summary Sheet [facility] - Vomiting, Adult [facility] Forms: - Medication Reconciliation Form [facility] - Thank You Letter [facility] - Antibiotic Education [facility] - Prescription Opioid Use [facility] - Work release form eb Prescriptions: - Carafate 1 gram Oral Tablet - take 1 tablet by ORAL route 4 times per day take on an empty stomach, beginning [facility] on waking and last dose at bedtime; 100 tablet; Refills: 0, Product Selection Permitted - Pepcid 20 mg Oral Tablet - take 1 tablet by ORAL route every 12 hours for 10 days; 20 tablet; Refills: 0, [facility] Product Selection Permitted - ondansetron 4 mg Oral tablet,disintegrating - take 1 tablet by ORAL route every 4-6 hours As needed; 20 tablet; Refills: 0, jmm Product Selection Permitted Signatures: Dispatcher [employer] EDCamilo Cavazos PA PA jmm Leal, Jahala RN SAURAV jl7 Randolph Neri RN RN Jayro Cody MD MD [id number] Corrections: (The following items were deleted from the chart) 10:41 10:41 Social history: Smoking status: Patient denies any tobacco usage or history of. jlYohan jl7 11:56 11:06 Abdomen Pelvis W Con+CT.RAD.BRZ ordered. EDMS EDMS
[2021-10-10 13:51] VITALS: TEMP 98.2
[2021-10-10 14:01] VITALS: BP 131/59; O2SAT 99
== END 2021-10-10 13:45 | disposition home or self-care (01) ==
LOC: ER 10:31
DX: R11.10 Vomiting, unspecified (principal); I10 Essential (primary) hypertension; F17.210 Nicotine dependence, cigarettes, uncomplicated
CPT/HCPCS: 96361; 85025; 36415; 83690; 80053; 74176; 76705; 96375; 96374; 99284; J2765; J1200; J7030

== ENCOUNTER 2023-08-24 01:00 | Emergency (ER) | payer SELFPAY ==
--- OUTSIDE RECORDS SUMMARY | 2023-08-24 01:04 | XMS REPORT | Continuity of Care Document ---
Author Name Unknown Address [address] [place] [address] Organization [facility] thconnect Address [address] [place] [address] Care Team Providers Care Loop Puller Name Role Phone Zain Manzo MD Primary Care Physician Zain Manzo MD Attending Clinician + [phone] ZAIN MANZO Attending Clinician UnaSon Samson Attending Clinician Unavailable Son Dugan Attending Clinician +[phone] Doctor Unassigned, [place] Attending Clinician U ALDEN Rodriguez Attending Clinician Unavailable Payers Payer Name Policy Type Policy Number Effective Date Expirati on Date Source Problems Condition Name Condition Details Condition Category Status Onset Date Resolution Date Last Treatment Date Treating Clinician Comments Source Bipolar 1 disorder, depressed Bipolar 1 disorder, depressed Disease Active 06-03 00:00: 00 [facility] Allergies, Adverse Reactions, Alerts Allergy Name Allergy Type Status Severity Reaction(s) Onset Date Inactive Date Treating Clinician Comments Source PENICILL IN DRUG INGREDI Active Hives 07-01 00:00: 00 [facility] Penicill in Propensi ty to adverse reaction s Active [facility]07[facility] 00:00: 00 [facility] NO KNOWN ALLERGIE S Drug Class Active [facility] Social History Social Habit Start Date Stop Date Quantity Comments Source History SDOH Alcohol Frequency [facility] History SDOH Alcohol Std Drinks [facility] History SDOH Alcohol Binge [facility] History of tobacco use Cigarette Smoker [facility] Alcohol intake 2022-07-02 00:00:00 2022-07-02 00:00:00 3.43 /d [facility] Exposure to SARS-CoV-2 (event) 2022-06-21 00:00:00 2022-07-01 10:37:00 Not sure [facility] Tobacco use and exposure 2015-06-04 00:00:00 2015-06-04 00:00:00 Smokeless tobacco non-user [facility] Cigarettes smoked current (pack per day) - Reported 2015-06-04 00:00:00 2015-06-04 00:00:00 [facility] Alcohol Comment 2015-06-04 00:00:00 2015-06-04 00:00:00 occ [facility] Sex Assigned At 1990 00:00:00 1990 00:00:00 [facility] Smoking Status Start Date Stop Date Source Smokes tobacco daily 2015-06-04 00:00:00 [facility] Medications Ordered Medication Name Filled Medication Name Start Date Stop Date Current Medication? Ordering Clinician Indication Dosage Frequency Signature (SIG) Comments Components Source methocarbam oL (ROBAXIN) tablet 500 mg 07-01 16:45: 00 07-01 15:40 :00 No 500mg 500 mg, Oral, ONCE, 1 dose, On Wed07/01/22 at 1145, Routine [facility] ibuprofen (IBU) tablet 600 mg 07-01 15:45: 00 07-01 15:40 :00 No 600mg 600 mg, Oral, ONCE, 1 dose, On Wed07/01/22 at 1045, PATI [facility] methocarbam oL 500 mg tablet 07-01 00:00: 00 Yes [id number] 500mg Take 1 tablet by mouth 4 (four) times daily. [facility] ibuprofen 600 mg tablet 07-01 00:00: 00 Yes [id number] 600mg Take 1 tablet by mouth every 6 (six) hours as needed for Pain (scale 4-6). [facility] QUEtiapine (SEROQUEL) 25 mg tablet 2021-03 00:00: 00 Yes [id number] 25mg Take 1 tablet by mouth at bedtime. [facility] busPIRone 5 mg tablet 2021-03 00:00: 00 07-02 00:00 :00 No [id number] 5mg Take 1 tablet by mouth in the morning and 1 tablet in the evening. [facility] ALPRAZolam 0.5 mg tablet 05-23 00:00: 00 12-10 00:00 :00 No [id number] .5mg Take 1 tablet by mouth 2 (two) times daily. [facility] QUEtiapine 25 mg tablet 05-23 00:00: 00 12-10 00:00 :00 No [id number] 25mg Take 1 tablet by mouth 2 (two) times daily. [facility] azithromyci n 500 mg tablet 2018-03 00:00: 00 12-10 00:00 :00 No [id number] 500mg Take 1 tablet by mouth daily. [facility] acyclovir 200 mg capsule 2018-03 00:00: 00 12-10 00:00 :00 No [id number] 200mg Take 1 capsule by mouth 4 (four) times daily. [facility] azithromyci n 500 mg tablet 2018-03 00:00: 00 12-10 00:00 :00 No [id number] 500mg Take 1 tablet by mouth daily. [facility] ALPRAZolam 0.5 mg tablet 2018-03 00:00: 00 05-23 00:00 :00 No [id number] .5mg Take 1 tablet by mouth 2 (two) times daily. [facility] QUEtiapine 25 mg tablet 2018-03 0 00:00: 00 05-23 00:00 :00 No [id number] 25mg Take 1 tablet by mouth 2 (two) times daily. [facility] Vital Signs Vital Name Observation Time Observation Value Comments S ource Systolic blood pressure 2022-07-02 19:10:00 135 mm[Hg] [facility] Diastolic blood pressure 2022-07-02 19:10:00 84 mm[Hg] [facility] Heart rate 2022-07-02 19:10:00 73 /min [facility] Body height 2022-07-02 19:10:00 182.9 cm [facility] Body weight 2022-07-02 19:10:00 123.832 kg [facility] BMI 2022-07-02 19:10:00 37.03 kg/m2 [facility] Systolic blood pressure 2022-07-01 15:05:00 161 mm[Hg] [place] [facility] Diastolic blood pressure 2022-07-01 15:05:00 89 mm[Hg] [facility] Heart rate 2022-07-01 15:05:00 82 /min [facility] Body temperature 2022-07-01 15:05:00 37.11 Iram [facility] Respiratory rate 2022-07-01 15:05:00 20 /min [facility] Body height 2022-07-01 15:05:00 182.9 cm [facility] Body weight 2022-07-01 15:05:00 117.935 kg [facility] BMI 2022-07-01 15:05:00 35.26 kg/m2 [facility] Oxygen saturation in Arterial blood by Pulse oximetry 2022-07-01 15:05:00 98 /min [facility] Systolic blood pressure 2021-12-10 20:07:00 121 mm[Hg] [facility] Diastolic blood pressure 2021-12-10 20:07:00 80 mm[Hg] [facility] Heart rate 2021-12-10 20:07:00 99 /[facility] Body height 2021-12-10 20:07:00 177.8 cm [facility] Body weight 2021-12-10 20:07:00 121.11 kg [facility] BMI 2021-12-10 20:07:00 38.31 kg/m2 [facility] Procedures Procedure Date / Time Performed Performing Clinicia n Source CONSENT/REFUSAL FOR DIAGNOSIS AND TREATMENT 2022-07-01 15:00:42 Doctor Unassigned, [place] [facility] ASSIGNMENT OF BENEFITS 2021-12-10 19:58:37 Docto r Unassigned, [place] [facility] Encounters Start Date/Time End Date/Time Encounter Type Admission Type Attending Clinicians Care Facility Care Department Encounter ID Source 2022-07-02 14:15:00 2022-07-02 14:24:17 Office Visit Zain Manzo [facility] [id number] [id number] [facility] 2022-07-02 14:15:00 2022-07-02 14:15:00 Outpatient ZAIN KWOK [facility] [id number] [facility] 2022-07-02 11:00:00 2022-07-02 11:00:00 Outpatient ZAIN KWOK [facility] [id number] [facility] 2022-07-01 10:06:00 2022-07-01 11:38:00 Emergency X Son [facility] ERT [id number] [facility] 2022-07-01 10:06:00 2022-07-01 11:38:00 Emergency Sno [facility] 1..840.114 [id number] [id number] [facility] 2022-02-19 09:45:00 2022-02-19 09:45:00 Outpatient ZAIN KWOK [facility] [id number] [facility] 2022-02-12 00:00:00 2022-02-12 00:00:00 Refill Zain Manzo [facility] [id number] [id number] [facility] 2022-01-20 14:00:00 2022-01-20 14:00:00 Outpatient ZAIN KWOK [facility] [id number] [facility] 2022-01-20 08:00:00 2022-01-20 08:00:00 Outpatient ZAIN KWOK [facility] [id number] [facility] 2022-01-14 15:00:00 2022-01-14 15:00:00 Outpatient ZAIN KWOK [facility] [id number] [facility] 2021-12-10 15:15:00 2021-12-10 15:24:12 Outpatient ZAIN KWOK [facility] [id number] [facility] 2021-12-10 15:15:00 2021-12-10 15:24:12 [facility] [id number] [id number] [id number] [facility] 2021-12-10 00:00:00 2021-12-10 00:00:00 Orders Only Doctor Unassigned, [place] [id number] [id number] [id number] [id number] [facility] 2021-12-10 00:00:00 2021-12-10 00:00:00 Letter (Out) Doctor Unassigned, [place] [id number] [id number] [id number] [id number] [facility] 2019-11-07 13:40:00 2019-11-07 13:40:00 Outpatient R [facility] [id number] [facility] 2019-11-07 13:40:00 2019-11-07 13:40:00 Outpatient R [facility] [id number] [facility] 2019-05-23 00:00:00 2019-05-23 00:00:00 [facility]arm[facility]ain [facility] [id number] [facility] Results Test Description Test Time Test Comments Results Result Co mments Source [id number] 01:30:00* Test Item Value Reference Range Interpretation Comme nts Chemistry (test code = NA-T) 141 mmol/L 136-145 N Chemistry (test code = K-T) 3.5 mmol/L 3.5-5.1 N Chemistry (test code = CL) 109 mmol/L 98-107 H Chemistry (test code = CO2) 21 mmol/L 22-29 L Chemistry (test code = ANGP) 15 mmol/L 10-20 N Chemistry (test code = BUN) 17 mg/dL 8.9-20.6 N Chemistry (test code = CREATT) 1.06 mg/dL 0.7-1.3 N Chemistry (test code = EGFRMDRD) 84 Reference Range for Estimated GFR: Greater than 90 mL/min/1.73 m2NOTE:The MDRD equation has not been validated for use with theelderly (over 70 years of age), women, patientswith serious comorbid condition or persons with extremes ofbody size, muscle mass, or nutritional status. Chemistry (test code = GLU-T) 107 mg/dL 70-105 H Chemistry (test code = CA) 9.5 mg/dL 7.8-10.44 N Chemistry (test code = TBILI) 0.3 mg/dL 0.2-1.2 N Chemistry (test code = TP) 6.9 g/dL 6.0-8.3 N Chemistry (test code = ALB) 4.3 g/dL 3.5-5.0 N Chemistry (test code = GLOB) 2.6 g/dL 2.4-3.5 N Chemistry (test code = AG) 1.7 g/dL 1.2-2.2 N Chemistry (test code = ALP) 48 U/L 40-150 N Chemistry (test code = AST) 19 U/L 5-34 N Chemistry (test code = ALT) 34 U/L 8-55 N [id number] 01:30:00* Test Item Value Reference Range Interpretation Comme [facility] Chemistry (test code = LIP) 20 U/L 8-78 N [id number] 01:17:00* Test Item Value Reference Range Interpretation Comme [facility] Hematology (test code = WBCT) 11.7 thou/uL [...]
[2023-08-24] MEDS ORDERED: LIDOCAINE 2% W/EPI 1:200,000 MPF 20 ML VIAL IM ONE (01:28)
[2023-08-24] MEDS ORDERED: TDAP (DIPHTH,PERTUSS(ACELL),TET VAC) 0.5 ML VIAL IMVAC ONE (01:28)
--- NOTE | 2023-08-24 02:26 | ER ---
Nurse's Notes [facility] Name: Nito Caba Age: 33 yrs Sex: Male : 1990 Arrival Date: 08/24/2023 Time: 01:00 Bed 27 Private MD: Diagnosis: Laceration without foreign body of left hand, initial encounter Presentation: 08/23 01:13 Chief complaint: Patient states: sustained laceration to left palm while sharpening lg3 knife. bleeding controlled. Coronavirus screen: Client denies travel out of the [place] in the last 14 days. At this time, the client does not indicate any symptoms associated with coronavirus-19. Ebola Screen: No symptoms or risks identified at this time. Complicating Factors: There are no complicating factors for this patient. Initial Sepsis Screen: Does the patient meet any 2 criteria? No. Patient's initial sepsis screen is negative. Does the patient have a suspected source of infection? No. Patient's initial sepsis screen is negative. Risk Assessment: Do you want to hurt yourself or someone else? Patient reports no desire to harm self or others. Onset of symptoms was August 24, 2023. 01:13 Method Of Arrival: Ambulatory lg3 01:13 Acuity: ANGELIA 4 lg3 Triage Assessment: 01:15 General: Appears in no apparent distress. comfortable, Behavior is calm, cooperative. lg3 Pain: Denies pain. EENT: No deficits noted. No signs and/or symptoms were reported regarding the EENT system. Neuro: No deficits noted. Claire Agitation-Sedation Scale (RASS): 0 - Alert and Calm Level of Consciousness is awake, alert, obeys commands, Oriented to person, place, time, situation. Cardiovascular: No deficits noted. Denies chest pain, shortness of breath, Capillary refill < 3 seconds Clubbing of nail beds is absent JVD is absent Patient's skin is warm and dry. Respiratory: No deficits noted. Airway is patent Respiratory effort is even, unlabored, Respiratory pattern is regular, symmetrical. GI: No deficits noted. No signs and/or symptoms were reported involving the gastrointestinal system. : No signs and/or symptoms were reported regarding the genitourinary system. Derm: Skin is intact, is healthy with good turgor, Skin is dry, Skin is normal, Skin temperature is warm Wound noted palm of left hand. Musculoskeletal: No deficits noted. No signs and/or symptoms reported regarding the musculoskeletal system. Circulation, motion, and sensation intact. Range of motion: intact in all extremities. 01:15 Injury Description: Laceration sustained to palm of left hand is clean, 0.5 to 2.5 cm lg3 long, not bleeding. Historical: - Allergies: 01:15 PENICILLINS; lg3 01:15 Iodine; lg3 01:15 SHELLFISH; lg3 - Home Meds: 01:15 None [Active]; lg3 - PMHx: 01:15 Hypertension; Anxiety; lg3 - PSHx: 01:15 dental; lg3 - Immunization history:: Adult Immunizations up to date, Last tetanus immunization: unknown. - Infectious Disease History:: Denies. - Social history:: Smoking status: Patient reports the use of cigarette tobacco products, smokes one-half pack cigarettes per day, Patient uses alcohol, occasionally. street drugs, marijuana. Screenin:17 [facility] ED Fall Risk Assessment (Adult) History of falling in the last 3 months, lg3 including since admission No falls in past 3 months (0 pts) Confusion or Disorientation No (0 pts) Intoxicated or Sedated No (0 pts) Impaired Gait No (0 pts) Mobility Assist Device Used No (0 pt) Altered Elimination No (0 pt) Score/Fall Risk Level 0 - 2 = Low Risk Oriented to surroundings, Maintained a safe environment, Educated pt \T\ family on fall prevention, incl call for assistance when getting out of bed, Assessed \T\ reinforced patient's understanding of fall precautions. Abuse screen: Denies threats or abuse. Denies injuries from another. Nutritional screening: No deficits noted. Tuberculosis screening: No symptoms or risk factors identified. Assessment: 01:17 General: see triage assessment. lg3 Vital Signs: 01:13 BP 140 / 86; Pulse 104; Resp 17 S; Temp 98.1(O); Pulse Ox 98% on R/A; Weight 115.67 kg lg3 (R); Height 6 ft. 0 in. (R); Pain 0/10; 02:38 BP 136 / 88; Pulse 91; Resp 16 S; Temp 97.8(O); Pulse Ox 99% on R/A; lg3 01:13 Body Mass Index 34.58 (115.67 kg, 182.88 cm) lg3 01:13 Pain Scale: Adult lg3 ED Course: 01:01 Patient arrived in ED. [id number] 01:04 Darek Oconnor PA is PHCP. cp 01:04 Sean Hawthorne MD is Attending Physician. cp 01:15 Triage completed. lg3 01:15 Arm band placed on right wrist. lg3 01:17 Patient has correct armband on for positive identification. Bed in low position. Call lg3 light in reach. Client placed on continuous cardiac and pulse oximetry monitoring. NIBP monitoring applied. Door closed. Noise minimized. Warm blanket given. Pillow given. 01:17 Wound care: to laceration located on palm of left hand was cleaned with soap and water, lg3 Patient tolerated well. 02:38 Wound care: located on palm of left hand was dressed with Neosporin, band aid. lg3 02:38 Assist provider with laceration repair on palm of left hand that was between 2.6 to 7.5 lg3 cm using sutures. Set up tray. Performed by Darek SORIANO Dressed with band aid, Neosporin, Patient tolerated well. 02:41 Patient did not have IV access during this emergency room visit. lg3 Administered Medications: 01:33 Drug: Boostrix Tdap IM 0.5 ml IM once; as a single dose Route: IM; Site: right deltoid; kb3 02:30 Follow up: Response: (VIS) Vaccine information sheet provided today. Questions and/or lg3 concerns addressed. VIS edition date: Oct 04, 2020.; No adverse reaction 02:29 Drug: Lidocaine Infiltration (2 %) 10 ml 5 ml Infiltration once; to bedside with lg3 epinephrine Volume: 5 ml; Route: Infiltration; Medication: 02:30 Vaccine Information Statement (VIS) provided today. Questions and/or concerns lg3 addressed. VIS edition date: October 04, 2020. Outcome: 02:26 Discharge ordered by . cp 02:38 Discharged to home ambulatory, lg3 02:38 Condition: stable 02:38 Discharge instructions given to patient, Instructed on discharge instructions, follow up and referral plans. wound care, Demonstrated understanding of instructions, follow-up care, wound care, 02:41 Patient left the ED. lg3 Signatures: Darek Oconnor PA PA cp Able, Lacie, RN RN lg3 Marylin Rosa6 Amelia Washington, RN RN kb3
--- NOTE | 2023-08-24 02:26 | EDPHYS ---
Physician Documentation [facility] Name: Nito Caba Age: 33 yrs Sex: Male : 1990 Arrival Date: 08/24/2023 Time: 01:00 Bed 27 Private MD: ED Physician Sean Hawthorne HPI: 08/23 01:30 This 33 yrs old Male presents to ER via Ambulatory with complaints of Laceration To cp Hand. 01:30 The patient has a laceration occurred at home, The injury was accidental while cp sharpening machete. The laceration(s) is(are) located on the palm of left hand hypertehar eminence. Onset: The symptoms/episode began/occurred just prior to arrival. Associated signs and symptoms: The patient has no apparent associated signs or symptoms. Historical: - Allergies: 01:15 PENICILLINS; lg3 01:15 Iodine; lg3 01:15 SHELLFISH; lg3 - Home Meds: 01:15 None [Active]; lg3 - PMHx: 01:15 Hypertension; Anxiety; lg3 - PSHx: 01:15 dental; lg3 - Immunization history:: Adult Immunizations up to date, Last tetanus immunization: unknown. - Infectious Disease History:: Denies. - Social history:: Smoking status: Patient reports the use of cigarette tobacco products, smokes one-half pack cigarettes per day, Patient uses alcohol, occasionally. street drugs, marijuana. ROS: 01:33 Skin: Positive for laceration(s), of the palm of left hand hypertehenar eminence, cp 01:33 Constitutional: Negative for body aches, chills, fever, cp 01:33 Respiratory: Negative for cough, shortness of breath, wheezing, 01:33 Abdomen/GI: Negative for abdominal pain, vomiting, diarrhea, constipation, 01:33 Neuro: Negative for dizziness, numbness, tingling, weakness, 01:33 All other systems are negative, Exam: 01:40 Head/Face: Normocephalic, atraumatic. cp 01:40 Constitutional: The patient appears in no acute distress, alert, awake, non-toxic, well developed, well nourished, anxious, 01:40 Chest/axilla: Inspection: normal, 01:40 Cardiovascular: Rate: tachycardic, 01:40 Respiratory: the patient does not display signs of respiratory distress, Respirations: normal, no use of accessory muscles, no retractions, labored breathing, is not present, 01:40 Musculoskeletal/extremity: Extremities: noted in the left hand: ROM: full active range of motion, in the right hand, Perfusion: the extremity is normally perfused throughout, Sensation intact. Tendon exam: specific tendon testing normal through active and passive range of motion 01:40 Skin: injury, laceration(s), the wound is approximately 3.5 cm(s), of the palm of left hand hyperthenar eminence, that can be described as clean, linear, with mild bleeding, Vital Signs: 01:13 BP 140 / 86; Pulse 104; Resp 17 S; Temp 98.1(O); Pulse Ox 98% on R/A; Weight 115.67 kg lg3 (R); Height 6 ft. 0 in. (R); Pain 0/10; 02:38 BP 136 / 88; Pulse 91; Resp 16 S; Temp 97.8(O); Pulse Ox 99% on R/A; lg3 01:13 Body Mass Index 34.58 (115.67 kg, 182.88 cm) lg3 01:13 Pain Scale: Adult lg3 Laceration: 02:30 Wound Repair of 3.5cm ( 1.4in ) subcutaneous laceration to palm of left hand cp hyperthenar eminence. Linear shaped.. Distal neuro/vascular/tendon intact. Anesthesia: Wound infiltrated with 5 mls of 2% lidocaine. Wound prep: Moderate cleansing by me, Wound irrigation by me. Skin closed with 5 4-0 Prolene using interrupted sutures and sterile technique. Dressed with Bacitracin, 4x4's. Patient tolerated well. MDM: 01:15 Patient medically screened. cp 02:00 Differential diagnosis: superficial laceration, tendon injury, vascular injury. cp 02:25 Data reviewed: vital signs, nurses notes, and as a result, I will discharge patient. cp 02:25 Counseling: I had a detailed discussion with the patient and/or guardian regarding the cp historical points, exam findings, and any diagnostic results supporting the discharge/admit diagnosis, the need for outpatient follow up, a family practitioner, to return to the emergency department if symptoms worsen or persist or if there are any questions or concerns that arise at home. Response to treatment: the patient's symptoms have markedly improved after treatment, and as a result, I will discharge patient. 08/23 01:24 Order name: Dressing - Wound; Complete Time: 02:29 cp 08/23 01:24 Order name: Gloves, Sterile; Complete Time: 02:29 cp 08/23 01:24 Order name: Setup Suture Tray; Complete Time: 02:29 cp 08/23 02:25 Order name: Wound dressing; Complete Time: 02:38 cp Administered Medications: 01:33 Drug: Boostrix Tdap IM 0.5 ml IM once; as a single dose Route: IM; Site: right deltoid; kb3 02:30 Follow up: Response: (VIS) Vaccine information sheet provided today. Questions and/or lg3 concerns addressed. VIS edition date: Oct 04, 2020.; No adverse reaction 02:29 Drug: Lidocaine Infiltration (2 %) 10 ml 5 ml Infiltration once; to bedside with lg3 epinephrine Volume: 5 ml; Route: Infiltration; Disposition Summary: 08/24/23 02:26 Discharge Ordered Notes: Location: Home cp Problem: new cp Symptoms: have improved cp Condition: Stable cp Diagnosis - Laceration without foreign body of left hand, initial encounter cp Followup: cp - With: Private Physician - When: 10 - 14 days - Reason: Staple/Suture removal Discharge Instructions: - Discharge Summary Sheet cp - Laceration Care, Adult cp Forms: - Medication Reconciliation Form cp - Antibiotic Education cp - Prescription Opioid Use cp - Patient Portal Instructions cp - Leadership Thank You Letter cp Signatures: Darek Oconnor PA PA cp Bere Brokoe RN RN lg3 Amelia Washington RN RN kb3 Corrections: (The following items were deleted from the chart) 20:17 02:35 Wound Repair of 3.5cm ( 1.4in ) subcutaneous laceration to palm of left hand cp hyperthenar eminence. Linear shaped.. Distal neuro/vascular/tendon intact. Anesthesia: Wound infiltrated with 5 mls of 2% lidocaine. Wound prep: Moderate cleansing by me, Wound irrigation by me. Skin closed with 5 4-0 Prolene using interrupted sutures and sterile technique. Dressed with Bacitracin, 4x4's. Patient tolerated well. cp
[2023-08-24 09:41] VITALS: BP 136/88; TEMP 97.8; O2SAT 99
== END 2023-08-24 02:41 | disposition home or self-care (01) ==
LOC: ER 01:00
PROC: 0HQGXZZ Repair Left Hand Skin, External Approach (ICD-10-PCS; principal; 2023-08-24)
DX: S61.412A Laceration without foreign body of left hand, initial encounter (principal)